=== PATIENT | female | born 2000 | race Caucasian/White ===

== ENCOUNTER 2020-09-17 00:10 | Emergency (ER) | payer MEDICAID, OTHER ==
[~2020-09-17] VITALS: Ht 177.8 cm; Wt 81.6 kg
--- NOTE | 2020-09-17 00:35 | NUR ---
PT BIBLAPD AND RA C/O BIZARRE BEHAVIOR, PER [employer] PT ON MUSHROOMS. PT BREATHING EVENLY AND UNLABORED, BUT REFUSING TO ANSWER QUESTIONS. PT SKIN WARM, DRY, AND INTACT. PT ATTACHED TO MONITOR AND POX. PT GIVEN BLANKET AND CALL LIGHT
[2020-09-17 00:51] LABS: BASOPHILS # (AUTO) 0.2 /CMM (0.0-0.2); BASOPHILS % (AUTO) 1.8 % (0.0-2.0); EOSINOPHILS % (AUTO) 0.5 % (0.0-6.0); HEMATOCRIT 38 % (33-45); HEMOGLOBIN 12.8 g/dL (11.5-14.8); LYMPHOCYTES # (AUTO) 1.5 /CMM (0.8-4.8); LYMPHOCYTES % (AUTO) 14.1 % (20.0-44.0); MEAN CORPUSCULAR HGB CONC 34 g/dl (31.0-36.0); MEAN CORPUSCULAR VOLUME 87 fL (82-100); MONOCYTES # (AUTO) 1.2 /CMM (0.1-1.30); MONOCYTES % (AUTO) 10.7 % (2.0-12.0); NEUTROPHILS # (AUTO) 7.9 /CMM (1.8-8.9); NEUTROPHILS % (AUTO) 72.9 % (43.0-81.0); PLATELET COUNT (AUTO) 166 /CMM (150-450); RED BLOOD CELL COUNT(AUTO) 4.36 MIL/uL (4.0-5.2); WHITE BLOOD COUNT (AUTO) 10.8 K/uL (4.3-11.0)
--- NOTE | 2020-09-17 00:58 | NUR ---
URINE AND COVID SWAB SENT TO THE LAB
[2020-09-17 01:12] LABS: BILIRUBIN,URINE NEGATIVE (NEGATIVE); COLOR,URINE YELLOW (YELLOW); LEUKOCYTE ESTERASE ,URINE NEGATIVE (NEGATIVE); NITRITE, URINE NEGATIVE (NEGATIVE); PROTEIN,URINE NEGATIVE (NEGATIVE); UGLUCOSE NEGATIVE (NEGATIVE); UROBILINOGEN,URINE 0.2 EU/dL (0.2)
[2020-09-17] MEDS ORDERED: diphenhydrAMINE HCL 50 MG/ML VIAL ONE (01:20)
[2020-09-17] MEDS ORDERED: HALOPERIDOL LACTATE INJ 5 MG/ML VIAL ONE (01:20)
--- NOTE | 2020-09-17 01:24 | NUR ---
VERBAL ORDER 25MG BENADRYL AND 5MG HALDOL IM CARRIED OUT
[2020-09-17] MEDS ORDERED: LORAZEPAM INJ 2 MG/ML VIAL ONE (01:43)
[2020-09-17] MEDS ORDERED: LORAZEPAM INJ 2 MG/ML VIAL IV ONE (02:00)
[2020-09-17] MEDS ORDERED: HALOPERIDOL LACTATE INJ 5 MG/ML VIAL IM ONE (02:00)
[2020-09-17] MEDS ORDERED: diphenhydrAMINE HCL 50 MG/ML VIAL IM ONE (02:00)
[2020-09-17 02:01] LABS: ALANINE AMINOTRANSFERASE 21 U/L (12-78); ALCOHOL, BLOOD 4 mg/dL (0-0); ALKALINE PHOSPHATASE 54 U/L (46-116); ASPARTATE AMINOTRANSFERASE 48 U/L (15-37); BILIRUBIN,DIRECT 0.3 mg/dL (0.0-0.2); BILIRUBIN,TOTAL 1.2 mg/dL (0.2-1.0); CALCIUM, SERUM 8.7 mg/dL (8.5-10.1); CARBON DIOXIDE 26 mmol/L (21-32); CHLORIDE 102 mmol/L (98-107); CREATININE 0.8 mg/dL (0.6-1.3); GLUCOSE 90 mg/dL (74-106); POTASSIUM 3.2 mmol/L (3.5-5.1); SODIUM SERUM 140 mmol/L (136-145); UREA NITROGEN, BLOOD 15 mg/dL (7-18)
[2020-09-17 02:23] LABS: ACETAMINOPHEN 0 ug/ml (10-30)
--- NOTE | 2020-09-17 07:05 | NUR ---
gave report to ANDREAS Hanson for [place]
--- NOTE | 2020-09-17 08:30 | NUR ---
Patient is resting comfortably in bed with eyes closed. Easily aroused. VSS
--- NOTE | 2020-09-17 11:00 | NUR ---
PT SITTING UP EATING LUNCH, NAD NOTED AT THIS TIME. VSS. WILL CONT TO MONITOR.
--- NOTE | 2020-09-17 13:48 | NUR ---
renal social worker was at he bedside. Pt stated that she is suicidal and would like to be admitted for inpatient psych voluntarily. was aware.
--- NOTE | 2020-09-17 13:50 | NUR ---
pt is in gown and belongings taken away.
--- NOTE | 2020-09-17 14:53 | NUR ---
Patient is resting comfortably in bed with eyes closed. Easily aroused. VSS
--- NOTE | 2020-09-17 15:40 | NUR ---
"Flatwork Feeder Consult: Flatwork Feeder consult requested for homelessness and substance abuse. Patient is a 20-year-old, white female. Patient was brought in by paramedics and [employer]. Per ER Physician, patient was found wandering the street, exhibiting bizarre behavior, and admits to taking mushrooms. SW met with the patient who is currently in the emergency department. Patient was alert and oriented x3. Patient presented lethargic and tearful. Patient is ambulatory. Patient mentioned that the only family contact she had was her sister Brenna Jack . Patient stated she has been homeless for the last four months and has no ID or income. Patient stated she has a history of substance abuse and has been taking methamphetamine and since she was [id number]. SW discussed the patients mental illness history with the patient; patient stated that she has a history of Schizophrenia with visual hallucinations. Patient stated that she is not currently experiencing any hallucinations. Patient also stated having a history of seizures. Patient denies any current suicidal or homicidal ideations. Patient authorized this SW to speak with the patients sister, Brenna Jack. SW spoke to the patients sister, Brenna Jack and discussed the patients condition, social support needs, and options for transportation if needed. SW expressed the patients needs for support and patients sister stated that the patient has struggled with substance abuse for some time. Brenna stated that if needed, Rob friend would be able to provide transportation. Brenna stated that her family maintains limited contact with the patient as there are young children in their familys home. SW discussed options for discharge with the patients sister. SW assessed patients needs for community resources and discussed discharge plan with the patient. Patient was provided with Addiction Resources for Drugs and Alcohol. Patient requests to be discharged to a substance abuse rehabilitation center. SAMUEL faxed clinicals to [facility] ([address] [place] [phone] ~54 mi to arrange for potential transfer. SAMUEL will work with case management to ensure a safe and proper discharge for the patient. Substance Abuse resources provided included: [facility] Substance Abuse Self-Helpline (SAS) ; CRI -HELP [address] [facility] [place] [address] ; [address] [place] [address] ; [facility] [address] [place] [address] ; [facility] [place] [address] [facility] [phone] ; [facility] [address] [facility] [address] ; [facility] [place] [address] [facility] [phone] ; [facility] Substance Abuse Helpline(SAS)[facility] ; [facility] Family Counseling ; [facility]; [facility] [place]; [facility] [place]; [facility]; [facility] [place]; [facility] [place]; [facility]; [facility] [place]; Alcoholics Anonymous -SFV; Lz-Mihs-Kfzavxj ; Marijuana Anonymous -SFV; Narcotics Anonymous www.na.org; Year-round shelters: [place] [address] [place] [address] ; [facility] [facility] [place] [address] [place] [address]; [place] [facility] Rotuzuu[address] [facility] [address] Winter Shelters: Alicja Romero Provider: [facility] [place] Address: [address] [address] # of Beds: 47 Population Served: Co[place] SPA 6 | [facility] Deedee Romero Provider: [facility] Address: [address] [place], [address] # of Beds: 66 Population Served: [place] Adelita [place] Provider: First to Serve Address: [address] [facility], [address] # of Beds: 56 Population Served: Joseyd Tony [place] Provider: [facility] Address: [address] [facility], [address] # of Beds: 49 Population Served: Coed SPA 8 | [facility] Provider: First to Serve Address: [address] [facility]. [place], [address] # of Beds: 37 Population Served: Coe Hygiene: [facility]: [address] [place] ; [facility] [address] [facility] ; [facility] [address] [facility] [place] . Food Resources: [place] [facility] at [facility]- [address] [facility]; Meet Each Need with Dignity ([facility]) [address] [facility] [place]; [facility] Food Pantry [address] [facility]; [facility] [address] [facility]. Mental Health resources provided: PSYCHIATRIC [address] [place] [address] ; [facility] [address] [facility] [address], [place] [address] ; Starr Hsieh [facility] [address] [place] [address] ; [place] [facility] [address] [place], [place] [id number] Healthcare Clinics: [facility] [address] [facility], [address] [place]. [place] ; [facility] [address] [facility] [facility] [address] [place] [address]; [facility] [place] [address] [facility] [place] [place] [address] [phone]) [phone] Counseling--Outpatient [facility] [address] [facility] [facility], [address] [place], [place] [address] (Specializes in in-depth psychotherapy for emotional distress: anxiety, depression, interpersonal conflicts, life transitions, childhood abuse) [facility] [address] [place] [address] (Assist with solving problem marital difficulties, separation & divorce, aging parents, & grief, chronic & terminal illness) [facility] [address] [place] [address] (Deal with loss & grief, anxiety, marital difficulties) Homebound/Mental Health Services [address] [facility], [address] [place] [address] (Provide in-home mental services to people who are incapable of leaving their homes) [facility] Needs of the Elderly Senior Service/Resource Center [address] [place] [address] Partial Hospitalization Program and Outpatient at [facility] [address] [place] [address] [facility] [address] [facility] [place] [address] PSYCHIATRIC OUTPATIENT SERVICES [facility] Partial Hospitalization and Intensive Outpatient Program (Managed Care and [place] Only)[address]. [facility] [phone] [facility] Partial Hospitalization and Outpatient [id number] [place], [place] [phone] [facility] Partial Hospitalization and Outpatient [id number] [place], [place] [phone] [address] [facility] Rls[address] [facility]. [address] [place] [phone] [place] [facility] Partial Hospitalization and Outpatient [id number] [facility] Aniyah, [phone] "
--- NOTE | 2020-09-17 16:30 | NUR ---
brewery cellar worker informed that she sent clinicals to [facility]. Awaiting for pt acceptance.
--- NOTE | 2020-09-17 17:30 | NUR ---
CLARA FROM [facility] PT ACCEPTED TO [facility] [phone] FOR REPORT MD TO FOLLOW
--- NOTE | 2020-09-17 17:51 | NUR ---
pt provided with meal
--- NOTE | 2020-09-17 17:54 | NUR ---
pt verbalized that she is feeling agitated because of the yelling in the ER from another patient. She is requesting to have Seroquel 300mg. MD made aware and approved to give a dose of Seroquel 300mg PO x 1 dose. noted and carried out.
[2020-09-17] MEDS ORDERED: QUETIAPINE FUMARATE 100 MG TABLET PO SCH (18:00)
--- NOTE | 2020-09-17 18:03 | NUR ---
pt medicated as ordered.
--- NOTE | 2020-09-17 20:23 | NUR ---
PT ACCEPTED AT [facility] UNDER THE CARE OF DR. GÓMEZ AND DR. WALLS. CALL [phone] FOR REPORT. PT GOING TO UNIT 2.
[2020-09-17] MEDS ORDERED: POTASSIUM CHLORIDE 20 MEQ TAB.PRT.SR PO ONE ×2 (20:28→20:30)
--- NOTE | 2020-09-17 20:37 | NUR ---
[facility] BLS TO [facility] [phone]
[2020-09-17 20:41] VITALS: BP 117/72
--- NOTE | 2020-09-17 20:41 | NUR ---
PT IN BED SLEEPING. NAD NOTED
--- NOTE | 2020-09-17 20:50 | NUR ---
REPORT GIVEN TO ANDREAS AHUJA FOR STEPHANIE AT THE [facility]
--- NOTE | 2020-09-17 21:26 | NUR ---
TRANSPORT AT BEDSIDE RERPORT GIVEN TO EMT.
--- NOTE | 2020-09-17 21:45 | NUR ---
PT LEFT ON GURNEY WITH 2 EMT OF AMBULANCE AT BEDSIDE. REPORT GIVEN TO EMT. PT IS IN STABLE CONDITION FOR TRANSPORT.
== END 2020-09-17 22:03 ==
LOC: ER 00:10
DX: R45.851 Suicidal ideations (principal); F15.10 Other stimulant abuse, uncomplicated; Z20.822 Contact with and (suspected) exposure to COVID-19; R45.1 Restlessness and agitation
CPT/HCPCS: 36415; 80048; 80076; 80299; 80307; 80320; 81003; 84703; 85025; 87426; 96372 ×2; 99285; C9803; J1200; J1630; J2060; G0480